=== PATIENT | female | born 1935 ===

== ENCOUNTER 2019-04-28 07:33 | Day surgery (SDC) | payer MEDICARE, BC ==
--- NOTE | 2019-04-25 11:46 | Opthalmology H&P ---
Ophthalmology H&P H&P Chief Complaint: decreased vision in right eye HPI Vision Affects Ability to: read, manage personal affairs HPI Narrative blurry vision Exam Visual Acuity: OD 20/50 OS 20/60 Tension: OD 17 OS 14 Eye Exam: normal OU: external exam, palpebral fissure-width, marginal reflex distance, levator function, corneas, anterior chambers, fundus exam; findings: lens - NS/Cataracts OU Assessment/Plan Treatment Plan: cataract extraction w/ lens implant Goals of Treatment: improvement of vision, enhance quality of life Attestation Attestation The risks and benefits of the surgery as well as alternative procedures were explained to the patient in detail. Nicholas Lewis MD Apr 25, 2019 11:46
--- NOTE | 2019-04-25 11:55 | Pre-Procedure Note/Attestation ---
Pre-Procedure Note/Attestation Complete Prior to Procedure Planned Procedure: left Procedure Narrative: Cataract extraction with intraocular lens implant left eye Indications for Procedure Pre-Operative Diagnosis: Nuclear Sclerotic Cataract Left Eye Attestation I attest that I discussed the nature of the procedure; its benefits; risks and complications; and alternatives (and the risks and benefits of such alternatives ), prior to the procedure, with the patient (or the patient's legal quality assurance representative). I attest that, if there was a reasonable possibility of needing a blood transfusion, the patient (or the patient's legal quality assurance representative) was given the [facility] standardized written summary, pursuant to the [place] Blood Safety Act ([place] Health and Safety Code # 1645, as amended). I attest that I re-evaluated the patient just prior to the surgery and that there has been no change in the patient's H&P, except as documented below: Nicholas Lewis MD Apr 25, 2019 11:54
[~2019-04-28] VITALS: Ht 166.4 cm; Wt 82.1 kg
[2019-04-28] VITALS (8 sets, daily range): BP systolic 136–176; BP diastolic 83–100
[~2019-04-28 07:33] MED LIST: Akten 3.5% 1ml Btl LEFT EYE ONE; Proparacaine 0.5% Opth Soln 15ml LEFT EYE ONE; SIMVASTATIN20 MG ORAL; TEMAZEPAM15 MG ORAL; Tetracaine 0.5% Opth 4ml Soln LEFT EYE ONE
[2019-04-28] MEDS: Diclofenac Sod 0.1% Op Soln LEFT EYE SCH ×3 (11:07→11:23)
[2019-04-28] MEDS: Tobramycin Op Soln 0.3% 5ml LEFT EYE SCH ×3 (11:07→11:23)
[2019-04-28] MEDS: Phenylephrine 10% Opth Soln 5ml LEFT EYE SCH ×3 (11:07→11:23)
[2019-04-28] MEDS: Cyclopentolate 1% Opth Sol 2ml LEFT EYE SCH ×3 (11:07→11:23)
[2019-04-28] MEDS: Tropicamide 1% Opth 15ml Soln LEFT EYE SCH ×3 (11:07→11:23)
[2019-04-28] MEDS ORDERED: NS Irrig 1000ml ONE (12:00)
[2019-04-28] MEDS ORDERED: Lidocaine 1% MPF 10mg/ml 5ml ONE (12:00)
[2019-04-28] MEDS ORDERED: Tetracaine 0.5% Opth 4ml Soln ONE (12:00)
[2019-04-28] MEDS ORDERED: Pred Forte 1% Opth Susp 1ml ONE (12:00)
[2019-04-28] MEDS ORDERED: LR 1000ml ONE (12:00)
[2019-04-28] MEDS ORDERED: Propofol 200mg/20ml IV ONE (12:00)
[2019-04-28] MEDS ORDERED: Sterile Water Irrig 1000ml IRRIG ONE (12:00)
[2019-04-28] MEDS ORDERED: Pilocarpine 1% Opth 15ml Soln ONE (12:00)
[2019-04-28] MEDS ORDERED: Dexamethasone 4mg/ml vial ONE (12:00)
[2019-04-28] MEDS ORDERED: Polysporin Opth Oint 3.5gm ONE ×2 (12:05→12:33)
[2019-04-28] MEDS ORDERED: EPINEPHrine 1mg/1ml Amp ONE (12:05)
[2019-04-28] MEDS ORDERED: BSS 500ml btl ONE (12:06)
[2019-04-28] MEDS ORDERED: Sodium Hyaluronate 14 mg/ml 0.85ml ONE (12:06)
[2019-04-28] MEDS ORDERED: Povidone-Iodine 5% opth solution ONE (12:06)
[2019-04-28] MEDS ORDERED: BSS 15ml BTL ONE (12:06)
[2019-04-28] MEDS ORDERED: Midazolam 2mg/2ml Inj ONE (12:10)
--- NOTE | 2019-04-28 12:20 | Anethesia Preoperative Eval ---
Anesthesia Pre-op PMH/ROS General Date of Evaluation: Apr 28, 2019 Time of Evaluation: 12:14 Anesthesiologist: Jo ASA Score: ASA 3 Mallampati Score Class I : Soft palate, uvula, fauces, pillars visible Class II: Soft palate, uvula, fauces visible Class III: Soft palate, base of uvula visible Class IV: Only hard plate visible Mallampati Classification: Class II Surgeon: Debbie Diagnosis: Cataract OS Surgical Procedure: Cat Ext IOL OS Anesthesia History: none Family History: no anesthesia problems Allergies: Coded Allergies: Derivative Milk (Verified Allergy, Mild, 04/28/19) postnasal drip, teary eyes EGG (Verified Allergy, Mild, 04/28/19) postnasal drip PENICILLINS (Verified Allergy, Unknown, 04/25/19) SKIN RASH Medications: see eMAR Patient NPO?: Yes Past Medical History Cardiovascular: Reports: HTN, other - HL Gastrointestinal/Genitourinary: Reports: GERD HEENT: Reports: cataract (L), cataract (R) Other: obesity PSxH Narrative: Cataract, Cholecystectomy, Cervical Spine SX Anesthesia Pre-op Phys. Exam Physician Exam Last Vital Signs Date Time Temp Pulse Resp B/P (MAP) Pulse Ox O2 Delivery O2 Flow Rate FiO2 04/28/19 11:30 97.0 73 18 138/83 99 Room Air Constitutional: NAD Neurologic: CN 2-12 intact Cardiovascular: RRR Respiratory: CTA Gastrointestinal: S/NT/ND Airway Exam Mallampati Score: Class II MO: limited ROM: limited Teeth: missing, intact Anesthesia Pre-op A/P Risk Assessment & Plan Assessment: SA 3 Plan: TIVA Status Change Before Surgery: No Edilberto Osorio MD Apr 28, 2019 12:20
--- NOTE | 2019-04-28 12:21 | Immediate Post-Op Evaluation ---
Immediate Post-Op Evalulation Immediate Post-Op Evalulation Procedure: Cat Ext IOL OS Date of Evaluation: Apr 28, 2019 Time of Evaluation: 13:09 IV Fluids: 300 LR Blood Products: 0 Estimated Blood Loss: 1 Urinary Output: 0 Blood Pressure Systolic: 176 Blood Pressure Diastolic: 98 Pulse Rate: 72 Respiratory Rate: 16 O2 Sat by Pulse Oximetry: 99 Temperature (Fahrenheit): 97.6 Pain Score (1-10): 1 Nausea: No Vomiting: No Complications 0 Patient Status: awake, reacts, patent, none Hydration Status: adequate Edilberto Osorio MD Apr 28, 2019 12:21
--- NOTE | 2019-04-28 13:00 | 48 Hour Post Anesthesia Eval ---
Post Anesthesia Evaluation Procedure: Cat Ext IOL OS Date of Evaluation: Apr 28, 2019 Time of Evaluation: 15:12 Blood Pressure Systolic: 171 0: 88 Pulse Rate: 71 Respiratory Rate: 18 Temperature (Fahrenheit): 98 O2 Sat by Pulse Oximetry: 98 Airway: patent Nausea: No Vomiting: No Pain Intensity: 1 Hydration Status: adequate Cardiopulmonary Status: Stable Mental Status/LOC: patient returned to baseline Follow-up Care/Observations: 0 Post-Anesthesia Complications: 0 Follow-up care needed: ready to discharge Edilberto Osorio MD Apr 28, 2019 13:00
--- NOTE | 2019-04-29 14:49 | Brief Operative Note ---
Immediate Post Operative Note Operative Note Chief Complaint: Blurry vision Pre-op Diagnosis: Nuclear Sclerotic Cataract Left Eye Procedure: Cataract extraction with IOL implant left eye Post-op Diagnosis: Pseudo OS Findings: consistent w/pre-op dx studies Surgeon: Nicholas Lewis MD Anesthesiologist: Edilberto Osorio MD Anesthesia: MAC Specimen: none Complications: none Condition: stable Fluids: LR Estimated Blood Loss: none Drains: none Implant(s) used?: Yes - IOL OS Nicholas Lewis MD Apr 29, 2019 14:49
--- NOTE | 2019-04-29 14:51 | Operative Note - PDOC ---
Operative Note Operative Note Date of Operation/Procedure: Apr 28, 2019 Chief Complaint: Blurry vision Pre-op Diagnosis: Nuclear Sclerotic Cataract Left Eye Procedure: Cataract extraction with IOL implant left eye Post-op Diagnosis: Pseudo OS Operative Findings: consistent w/pre-op dx studies Surgeon: Nicholas Lewis MD Anesthesiologist: Edilberto Osorio MD Anesthesia: MAC Specimen: none Complications: none Condition: stable Fluids: LR Estimated Blood Loss: none Drains: none Implant(s) used?: Yes - IOL OS Indications for Procedure Nuclear sclerotic cataract left eye Description of Procedure This patient has been complaining visually significant cataract in the left eye with the best corrected visual acuity of 20/80 under moderate glare conditions worse. The patient complains of difficulties with glare in performing activities of daily living and wants to manage personal affairs with comfort and accuracy and see well enough to move with safety at home and outdoors. The risks, benefits and alternatives of the procedure were discussed with the patient in the office prior to scheduling surgery. All questions from the patient were answered after the surgical procedure was explained in detail. The risks of the procedure as explained to the patient include, but are not limited to, pain, infection, bleeding, loss of vision, retinal detachment, need for further surgery, loss of lens nucleus, double vision, etc. Alternative procedures were discussed which include, to do nothing or seek a second opinion. Informed consent for this procedure was obtained from the patient. The patient was referred to a primary care physician for a cardiopulmonary clearance prior to surgery, after proper evaluation was done patient was properly scheduled for outpatient surgery. The patient was brought to the operating room where the anesthesiologist established I.V. lines and cardiac monitoring leads. Mild intravenous sedation was administered. The patient was then prepared with a 5% solution of povidone -iodine to the conjunctival fornix and lashes, and a 5% solution of povidone- iodine to the lids and periorbital skin. The patient was then draped in the usual sterile fashion. A lid speculum was then placed in the operative eye. A keratome blade was then used to create a biplanar incision into the anterior chamber. Viscoelastics was then instilled into the anterior chamber. A capsulorrhexis was then fashioned with an utrata forceps. The lens nucleus was hydrodissected and hydrodelineated with a G 27 Cannula. Paracentesis incision was made at 3 o'clock with sharp blade. The phacoemulsification unit, after being properly adjusted and tested, was then used to emulsify the nucleus followed by aspiration and irrigation of residual cortical material. Healon was then instilled into the anterior chamber. The corneal wound was then enlarged to the size of the optic with the omid keratome blade. The intraocular lens was then inspected for right power and size and thought to be satisfactory. Then the lens was gently placed in the capsular bag. Positioning within the capsular bag was confirmed by direct visualization. Optic centration was accomplished with a [place] hook. Viscoelastics was removed from the anterior chamber using the irrigation and aspiration unit. The corneal wound was then tested for leaks and none were found. The lid speculum were then removed. Sponge and needle counts were correct. An eye patch and shield were placed over the operative eye. The patient was taken to the recovery room in stable condition. There were no complications. The patient tolerated the procedure well. The patient was then transferred to the ambulatory surgery unit in stable and satisfactory condition , was given detailed written instructions and asked to follow up in the office the next day. Nicholas Lewis MD Apr 29, 2019 14:51
== END 2019-04-28 14:20 | disposition home or self-care (01) ==
LOC: SUR 07:33
DX: H25.12 Age-related nuclear cataract, left eye (principal); I10 Essential (primary) hypertension; Z90.49 Acquired absence of other specified parts of digestive tract; E66.9 Obesity, unspecified; K21.9 Gastro-esophageal reflux disease without esophagitis; Z88.0 Allergy status to penicillin; Z91.012 Allergy to eggs; Z68.29 Body mass index [BMI] 29.0-29.9, adult
CPT/HCPCS: 66984; J0171; J1100; J2250; J2704; J3370; V2632; 94003; 94150